=== PATIENT | male | born 1935 | race American Indian/Alaskan Native ===

== ENCOUNTER 2017-09-30 05:19 | Emergency (ER) | payer MEDICARE ==
[2017-09-30 06:50] VITALS: BP 163/68
--- NOTE | 2017-09-30 07:23 | Emergency Department Report ---
HPI - General Chief Complaint: Abdominal Pain Time Seen by Provider: 09/30/17 07:02 - HPI HPI: Room 6 The patient is an 81-year-old male presented with a chief complaint of left flank pain. The patient states 02:00 this morning he was asleep on his right side when he felt as though his left hip "shifted and closed up " his anal area. The patient states he then developed left flank pain as well as swelling from his hemorrhoids on the left side of the anus make it difficult for him to pass gas. The patient states he used a gloved finger to manipulate his hemorrhoids and was able to pass gas and his symptoms improved but did not resolve. The patient states 04:00 this morning the symptoms worsened prompting him to call his daughter and in turn come to the ED for evaluation. Patient denies fever, dysuria or hematuria. 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 - Surgical History Past Surgical History?: Yes Additional Surgical History: L hip replacement - Family History Family history: no significant - Social History Smoking Status: Current Some Day Smoker (rarely) Substance Use Type: None (denies illicit drug use) - Medications Home Medications: Home Medications Medication Instructions Recorded Confirmed Last Taken Type Hydrocortisone [Anucort-HC SUPPOS] 25 mg RC BID #10 supp.rect 09/30/17 Unknown Rx Sulfamethoxazole/Trimethoprim 1 each PO BID #14 tablet 09/30/17 Unknown Rx [Bactrim DS TAB] ED Review of Systems ROS: Stated complaint: LEFT HIP PAIN Other details as noted in HPI Comment: All other systems reviewed and negative Constitutional: denies: chills, fever Eyes: denies: eye pain, eye discharge, vision change ENT: denies: ear pain, throat pain Respiratory: denies: cough, shortness of breath, wheezing Cardiovascular: denies: chest pain, palpitations Endocrine: no symptoms reported Gastrointestinal: denies: abdominal pain, nausea, diarrhea Genitourinary: denies: urgency, dysuria Musculoskeletal: arthralgia Skin: denies: rash, lesions Neurological: denies: headache, weakness, paresthesias Psychiatric: denies: anxiety, depression Hematological/Lymphatic: denies: easy bleeding, easy bruising Physical Exam - Physical Exam Vital Signs: Vital Signs 09/30/17 09/30/17 09/30/17 05:32 05:44 06:09 Temperature 98.4 F 98.1 F Pulse Rate 86 83 84 Respiratory 11 L 13 Rate Blood Pressure Blood Pressure 177/71 182/78 [Left] O2 Sat by Pulse 98 Oximetry 09/30/17 06:31 Temperature Pulse Rate 74 Respiratory 15 Rate Blood Pressure 163/68 Blood Pressure [Left] O2 Sat by Pulse Oximetry Physical Exam: GENERAL: The patient is well-developed well-nourished male lying on stretcher not appearing to be in acute distress. [] HEENT: Normocephalic. Atraumatic. Patient has moist mucous membranes. NECK: Trachea midline CHEST/LUNGS: Clear to auscultation. There is no respiratory distress noted. HEART/CARDIOVASCULAR: Regular. There is no tachycardia. There is no gallop rub or murmur. ABDOMEN: Abdomen is soft, with tenderness to palpation in the left upper quadrant, left lower quadrant and suprapubic region. Patient has normal bowel sounds. There is no abdominal distention. SKIN: There is no rash. There is no edema. There is no diaphoresis. NEURO: The patient is awake, alert, and oriented. The patient is cooperative. The patient has normal speech MUSCULOSKELETAL: There is no evidence of acute injury. RECTAL: No external hemorrhoids visualized. No internal hemorrhoids palpated. No fecal impaction ED Course Vital Signs 09/30/17 09/30/17 09/30/17 05:32 05:44 06:09 Temperature 98.4 F 98.1 F Pulse Rate 86 83 84 Respiratory 11 L 13 Rate Blood Pressure Blood Pressure 177/71 182/78 [Left] O2 Sat by Pulse 98 Oximetry 09/30/17 06:31 Temperature Pulse Rate 74 Respiratory 15 Rate Blood Pressure 163/68 Blood Pressure [Left] O2 Sat by Pulse Oximetry ED Medical Decision Making - Lab Data Result diagrams: 09/30/17 07:28 09/30/17 07:28 Laboratory Tests 10/31/17 10/31/17 10/31/17 07:28 07:28 09:41 WBC 4.4 L RBC 3.34 L Hgb 10.9 L Hct 32.2 L MCV 97 H MCH 33 H MCHC 34 RDW 12.9 L Plt Count 142 Lymph % (Auto) 25.2 Benzie % (Auto) 8.2 H Eos % (Auto) 3.7 Baso % (Auto) 0.8 Lymph # 1.1 L Benzie # 0.4 Eos # 0.2 Baso # 0.0 Seg Neutrophils % 62.1 Seg Neutrophils # 2.7 Sodium 142 Potassium 4.5 Chloride 101.5 Carbon Dioxide 26 Anion Gap 19 BUN 23 H Creatinine 0.7 L Estimated GFR > 60 BUN/Creatinine Ratio 33 Glucose 128 H Calcium 9.5 Total Bilirubin 0.30 AST 20 ALT 16 Alkaline Phosphatase 75 Total Protein 6.7 Albumin 4.2 Albumin/Globulin Ratio 1.7 Lipase 34 Urine Color Straw Urine Turbidity Clear Urine pH 6.0 Ur Specific [place] 1.009 Urine Protein <15 mg/dl Urine Glucose (UA) Neg Urine Ketones Neg Urine Blood Neg Urine Nitrite Neg Urine Bilirubin Neg Urine Urobilinogen < 2.0 Ur Leukocyte Esterase Neg Urine WBC (Auto) < 1.0 Urine RBC (Auto) 1.0 U Epithel Cells (Auto) < 1.0 Hyaline Casts 1 - Radiology Data Radiology results: report reviewed (CT abdomen and pelvis), image reviewed (CT abdomen and pelvis, left hip x-ray) interpreted by me: Left hip x-ray-no acute fracture, no dislocation. Hip prosthesis in proper location CT abdomen and pelvis (read by radiologist)- slight nonspecific left perinephric fat stranding without radiopaque calculi or hydronephrosis on this unenhanced exam. Reversal of findings including distal esophageal thickening, cholelithiasis, right nephrectomy, left hip replacement, enlarged prostate and possible constipation amongst others. - Medical Decision Making Although the patient's urinalysis is unremarkable given the nonspecific stranding stranding changes found around the patient's only kidney I will initiate antibiotic therapy. Patient will be given prompt referral to follow up with a urologist for further evaluation of his kidney and enlarged prostate - Differential Diagnosis renal colic, diverticulitis, pyelonephritis Critical care attestation.: If time is entered above; I have spent that time in minutes in the direct care of this critically ill patient, excluding procedure time. ED Disposition Clinical Impression: Left flank pain, Enlarged prostate, Rectal pain Disposition: TO HOME OR SELFCARE Is pt being admited?: No Does the pt Need Aspirin: No Condition: Stable Instructions: Hemorrhoids (ED), Benign Prostatic Hypertrophy (ED), Prostate Cancer (GEN) Additional Instructions: Return to the emergency department immediately should you develop worsening symptoms, fever, inability to tolerate food or liquid or any other concerns. Prescriptions: Hydrocortisone [Anucort-HC SUPPOS] 25 mg RC BID #10 supp.rect Sulfamethoxazole/Trimethoprim [Bactrim DS TAB] 1 each PO BID #14 tablet Referrals: SHANTE STRICKLAND MD [Staff Physician] - 3-5 Days (Dr. Strickland is a lead teacher. Please follow-up with him for further evaluation) PRIMARY CAREMD [Primary Care Provider] - 3-5 Days RYAN GTZ MD [Staff Physician] - A[place]JANDR[place] (Dr. Gtz is a urologist. Please follow up with him for further evaluation of your enlarged prostate) [facility] [Outside] - [place] Time of Disposition: 10:31
[2017-09-30 08:03] LABS: Basophils % (Auto) 0.8 % (0.0-1.8); Eosinophils % (Auto) 3.7 % (0.0-4.3); Hematocrit 32.2 % (35.5-45.6); Hemoglobin 10.9 gm/dl (11.8-15.2); Mean Corpuscular HGB Conc 34 % (32-34); Mean Corpuscular Hemoglobin 33 pg (28-32); Mean Corpuscular Volume 97 fl (84-94); Red Blood Count 3.34 M/mm3 (3.65-5.03); Red Cell Distribution Width 12.9 % (13.2-15.2); White Blood Count 4.4 K/mm3 (4.5-11.0)
[2017-09-30 08:05] LABS: Alanine Aminotransferase 16 units/L (7-56); Albumin 4.2 g/dL (3.9-5); Albumin/Globulin Ratio 1.7 %; Alkaline Phosphatase 75 units/L (35-129); Anion Gap 19 mmol/L; BUN/Creatinine Ratio 33; Blood Urea Nitrogen 23 mg/dL (9-20); Calcium 9.5 mg/dL (8.4-10.2); Carbon Dioxide 26 mmol/L (22-30); Chloride 101.5 mmol/L (98-107); Glucose 128 mg/dL (75-100); Lipase 34 units/L (13-60); Potassium 4.5 mmol/L (3.6-5.0); Sodium 142 mmol/L (137-145); Total Protein 6.7 g/dL (6.3-8.2)
[2017-09-30 08:18] LABS: Platelet Count 142 K/mm3 (140-440)
--- NOTE | 2017-09-30 08:30 | XRay Report ---
PELVIS RADIOGRAPH INDICATION: Pain. COMPARISON: None similar at this institution. FINDINGS: AP radiographs of the pelvis and left hip demonstrate left hip arthroplasty with postsurgical or heterotopic changes at the left hip. Normal right femoral head contour with degenerative joint space narrowing and possible small overlying clip-like density. Moderate L3-L4 and few other degenerative changes. Intact SI joints. Osteopenia/osteoporosis. Few vascular calcifications. Nonobstructive bowel gas pattern. Pelvic tilt noted, possibly positional. Frog-leg view unobtainable due to pain and paralysis. CONCLUSION: No acute radiographic abnormality with left hip post surgical appearance and other degenerative changes noted, as described. Thank you for the opportunity to participate in this patient's care.
--- NOTE | 2017-09-30 09:28 | Cat Scan Report ---
CT ABDOMEN AND PELVIS WITHOUT CONTRAST INDICATION: Left flank pain. COMPARISON: None similar. FINDINGS: Noncontrast abdomen and pelvis CT performed. LUNG BASES: Moderate distal esophageal wall prominence/thickening, not excluded for gastroesophageal reflux and/or hiatal hernia, amongst others. Atherosclerotic coronary and aortic calcifications. Right hemidiaphragm mildly elevated. ABDOMEN: Please note that sensitivity to detect small visceral lesions is limited due to the absence of intravenous or oral contrast. Innumerable small calcified gallstones noted dependently, individually measuring 3-4 mm. Grossly unremarkable unenhanced liver, spleen, pancreas, adrenals, nonaneurysmal abdominal aorta with few atherosclerotic calcifications and IVC. No ascites or definite significant adenopathy. Nonopacified GI tract evaluation limited, though grossly nonobstructive. Couple small bowel diverticuli noted in the right lower quadrant, axial images 221 and 240. Cecum located midline near the umbilicus with some stool/debris in the appendix located anteriorly with its tip extending towards the right lower quadrant as on axial image 208, amongst others. Moderate colonic stool/possible constipation. Right kidney surgically absent with unremarkable fossa occupied by bowel. Nonhydronephrotic left kidney demonstrates slight perinephric stranding. No radiopaque renal calculi. PELVIS: Approximately 5 x 4.5 cm prostate creates an impression at the bladder base and may be correlated for clinically and with PSA. Few pelvic phleboliths. Grossly unremarkable remainder nonopacified urinary bladder and the rectosigmoid, though evaluation limited due to streak artifact from left hip arthroplasty. No free fluid or definite significant adenopathy. Severe L3-L4 degenerative changes with disc narrowing, vacuum phenomenon, spurring and adjacent vertebral body halves sclerosis. Mild lumbar dextroscoliosis apex about L3. Additional mild lumbar, lower thoracic and bilateral SI joint degenerative spurring. Right inguinal surgical density/possible hernia repair. Right hip joint space narrowing. CONCLUSION: 1. Slight nonspecific left perinephric fat stranding without radiopaque calculi or hydronephrosis on this unenhanced exam. Please correlate. 2. Various other findings, including distal esophageal thickening, cholelithiasis, right nephrectomy, left hip replacement, enlarged prostate and possible constipation, amongst others, as above. Thank you for the opportunity to participate in this patient's care.
[2017-09-30 09:56] LABS: Bilirubin,Urine NEG (Negative); Blood,Urine NEG (Negative); Ketones,Urine NEG (Negative); Leukocyte Esterase,Urine NEG (Negative); Nitrite,Urine NEG (Negative); Protein,Urine <15 mg/dL mg/dL (Negative); Urobilinogen,Urine < 2.0 mg/dL (<2.0)
[2017-09-30 10:11] LABS: WBC,Urine < 1.0 /HPF (0.0-6.0)
== END 2017-09-30 11:17 | disposition home or self-care (01) ==
LOC: ED 05:19
DX: R10.9 Unspecified abdominal pain (principal); N40.0 Benign prostatic hyperplasia without lower urinary tract symptoms; K62.89 Other specified diseases of anus and rectum; F17.200 Nicotine dependence, unspecified, uncomplicated
CPT/HCPCS: 36415; 72170; 74176; 80053; 81001; 83690; 85025; 99285